=== PATIENT | male | born 1965 | race Caucasian/White ===

== ENCOUNTER 2017-01-22 10:14 | Emergency (ER) | payer OTHER ==
[~2017-01-22 10:14] MED LIST: FAMVIR500 MG PO; IBUPROFEN PO; LEXAPRO PO; NEURONTIN PO; PORTLAND PHARMACY; UNK B/P MED; VICODIN 5/500 T1 TAB PO
== END 2017-01-22 10:22 | disposition home or self-care (01) ==
LOC: CED 10:14
DX: J06.9 Acute upper respiratory infection, unspecified (principal); F43.10 Post-traumatic stress disorder, unspecified; F41.9 Anxiety disorder, unspecified; F32.9 Major depressive disorder, single episode, unspecified; I10 Essential (primary) hypertension; F17.210 Nicotine dependence, cigarettes, uncomplicated
CPT/HCPCS: 99282